=== PATIENT | male | born 1965 | race Caucasian/White ===

== ENCOUNTER → 2018-06-29 | Outpatient (CLI) | payer BC ==
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
== END | disposition home or self-care (01) ==
LOC: CT 14:49
PROVIDERS: ATTEND Family Medicine
DX: S12.590A Other displaced fracture of sixth cervical vertebra, initial encounter for closed fracture (principal); N20.0 Calculus of kidney; J98.11 Atelectasis; K44.9 Diaphragmatic hernia without obstruction or gangrene; M12.88 Other specific arthropathies, not elsewhere classified, other specified site; X58.XXXA Exposure to other specified factors, initial encounter; Y93.89 Activity, other specified; Y92.89 Other specified places as the place of occurrence of the external cause; Y99.8 Other external cause status
CPT/HCPCS: 72125; 72128